=== PATIENT | female | born 2000 | race Caucasian/White ===

== ENCOUNTER 2020-06-28 11:39 | Emergency (ER) | payer OTHER, SELFPAY ==
[2020-06-28 11:50] VITALS: BP 110/55; PULSE 79; RESP 16; TEMP 36.9; O2SAT 100
--- NOTE | 2020-06-28 12:11 | ED.SKABFB ---
HPI - Skin/Abscess/Foreign Bdy General Chief complaint: Skin/Abscess/Foreign Body Stated complaint: RASH Source: patient and RN notes reviewed Limitations: no limitations History of Present Illness HPI narrative: The patient, previously healthy and a 'nursing' student, presents with skin eruption. Patient states she was working with family members [who have similar rash],clearing brush and land. She now has pink, weeping, itchy eruption on her trunk and extremities. No fever, cough/wheeze, induration/abscess, streaking; symptoms are mild, worse scratching Related Data Home Medications Medication Instructions Recorded Confirmed fluvoxamine mg 06/28/20 norgestimate-ethinyl estradiol tablet 06/28/20 [Tri-Sprintec (28)] Allergies Allergy/AdvReac Type Severity Reaction Status Date / Time Sulfa (Sulfonamide Allergy Unknown Verified 06/28/20 11:53 Antibiotics) Review of Systems Review of Systems: Narrative: General/Constitutional: No weight loss,fever Eyes: N0: Redness,discharge Ears/Nose/Throat: No: Epistaxis,ear discharge Respiratory: Denies: Hemoptysis Gastrointestinal: No Vomiting, Bleeding-rectal Skin: No Lumps, REPORTS eruption Neurologic: No Focal Weakness,Sz Hematologic: Denies: Petechiae/Purpura Psychiatric: No: Suicida ideationl All Other Systems: Reviewed and Negative PMFSH Comments At time of signature, agree with nursing past medical, surgical, social and family history. There is no relevant family history pertinent to the presenting complaint Exam Narrative: Exam Narrative: General Appearance: Well appearing, Conjunctiva clear Ears: External ear normal Nose: Normal nose Mouth/Throat: Normal appearing, Normal lips Neck: Supple Respiratory: Airway patent, No respiratory distress Musculoskeletal: Full ROM Skin: Warm, Dry; classic widespread macular papular & rarely vesicular eruption occ confluent,on trunk and extremities Neurological: A&O x3, Normal affect Course Vital Signs Vital signs: Vital Signs Temperature 98.4 F 06/28/20 11:50 Pulse Rate 79 06/28/20 11:50 Respiratory Rate 16 06/28/20 11:50 Blood Pressure 110/55 L 06/28/20 11:50 Pulse Oximetry 100 06/28/20 11:50 Temperature 98.4 F 06/28/20 11:50 Pulse Rate 79 06/28/20 11:50 Respiratory Rate 16 06/28/20 11:50 Blood Pressure 110/55 L 06/28/20 11:50 Pulse Oximetry 100 06/28/20 11:50 Discharge Plan Discharge Clinical Impression: Contact dermatitis and eczema due to plant Patient Disposition: Home, Self-Care Condition: Stable Instructions: Poison Susie (ED) Prescriptions: New methylprednisolone [Medrol (Joshua)] 4 mg tablets,dose pack See Rx Instructions .ROUTE .COMPLEX Qty: 2 RF: 0 loratadine [Claritin] 10 mg tablet 10 mg PO DAILY Qty: 20 RF: 0 No Action fluvoxamine 100 mg tablet RF: 0 norgestimate-ethinyl estradiol [Tri-Sprintec (28)] 0.18/0.215/0.25 mg-35 mcg (28) tablet RF: 0 Follow-up/Referrals: PHYSICIAN,FIELD MARKETING REPRESENTATIVE [Primary Care Provider] - Stand Alone Forms: Work/School Release IP Discharge Date/Time: 06/28/20 12:11
== END 2020-06-28 12:11 | disposition home or self-care (01) ==
PROVIDERS: Emergency Provider Emergency Medicine
DX: L25.5 Unspecified contact dermatitis due to plants, except food (principal)
CPT/HCPCS: 99213; G0463